=== PATIENT | male | born 1960 | race Two or more races ===

== ENCOUNTER 2024-01-05 07:35 | Outpatient (CLI) | payer OTHER | END 2024-01-05 07:43 | disposition home or self-care (01) | LOC: RAD 07:35 | PROVIDERS: ATTEND Orthopaedic Surgery | DX: Z76.89 Persons encountering health services in other specified circumstances (principal) ==

== ENCOUNTER 2024-01-05 08:05 | Outpatient (CLI) | payer OTHER | END 2024-01-05 08:06 | disposition home or self-care (01) | LOC: EKG 08:05 | PROVIDERS: ATTEND Orthopaedic Surgery | DX: I10 Essential (primary) hypertension (principal) ==